=== PATIENT | female | born 1995 | race Caucasian/White ===

== ENCOUNTER 2019-11-23 10:30 | Outpatient (CLI) | payer OTHER ==
--- NOTE | 2019-11-23 12:25 | CT ---
CT OF THE ABDOMEN AND PELVIS WITHOUT CONTRAST: INDICATION: Right-sided flank pain. COMPARISON: Prior exam dated 06/29/2012. FINDINGS: There is mild right hydronephrosis and hydroureter. There is a 4.7 mm stone in the distal right uret er. There is a 3 mm nonobstructing calculus within the mid right kidney. There is a 2.7 mm calculus in the superior pole of the left kidney. There is a 6 mm calculus in the superior pole of the left kidney. Lung bases, liver, pancreas, adrenal glands, spleen, and retroperitoneum appear within normal limits. There is a normal appendix in the right lower quadrant. Bladder, rectum, and perirectal soft tissu es are unremarkable-appearing. IMPRESSION: 1. A 4.7 mm distal right ureteral calculus with mild right hydronephrosis. 2. Worsening bilateral nephrolithiasis. POS: [facility]
== END 2019-11-23 10:31 | disposition home or self-care (01) ==
LOC: BICCT 10:30
PROVIDERS: ATTEND Physician Assistant
DX: R10.9 Unspecified abdominal pain (principal); R30.0 Dysuria; N13.2 Hydronephrosis with renal and ureteral calculous obstruction
CPT/HCPCS: 74176

== ENCOUNTER 2019-12-14 10:42 | Day surgery (SDC) | payer OTHER ==
[2019-12-11 16:07] VITALS: BMI 31.8
[~2019-12-14 10:42] MED LIST: Dexamethasone 20 MG/5 ML VIAL ONE; Lidocaine 1% PF 5 ML VIAL ONE; Ondansetron PF 4 MG/2 ML Vial ONE; PROPOFOL 200 MG/20 ML VIAL ONE
[2019-12-14] MEDS ORDERED: Levofloxacin 500 mg/D5W 100 ml Premix Bag ONE (12:23)
[2019-12-14] MEDS ORDERED: Scopolamine 1.5 mg/72 hour Patch ONE (13:39)
[2019-12-14] MEDS ORDERED: Famotidine/PF 20 mg/2ml Vial ONE (13:39)
[2019-12-14] MEDS ORDERED: Midazolam HCl 2 mg/2 ml Vial ONE (13:40)
[2019-12-14] MEDS ORDERED: Fentanyl 100 MCG/2 ML VIAL ONE ×2 (14:14→15:40)
[2019-12-14] MEDS ORDERED: Promethazine HCl 25 MG/ML VIAL ONE (15:40)
[2019-12-14] MEDS ORDERED: HYDROcodone/Acetaminophen 5/325 mg Tablet ONE (16:38)
[2019-12-14] MEDS ORDERED: B & O ONE (17:35)
--- NOTE | 2019-12-14 19:28 | OP ---
DATE OF PROCEDURE: 12/14/2019 SERVICES: Urology. PREOPERATIVE DIAGNOSIS: Left renal stone. POSTOPERATIVE DIAGNOSIS: Left renal stone. PROCEDURE PERFORMED: Left ureteroscopy, laser lithotripsy, basket extraction of stone, and placement of a 6 x 26 double-J stent with no string attached. INDICATIONS FOR PROCEDURE: Ms. Hebert is a 24-year-old white female, who initially presented to me when she was 17 with a history of renal stones. We had treated her at that time, but she had transferred care to [facility]. She has undergone several stone surgeries since then and then recently came back with another stone on the right side. She passed that stone per CT, demonstrated an additional 6-mm large stone and a 2-mm stone in her left kidney. I discussed ureteroscopy due to the large size of the stone with risks and benefits and she agreed to proceed forward. DESCRIPTION OF PROCEDURE: After identification of armband and verification of consent, the patient was brought back to the operating room, where she underwent general anesthesia with an LMA. She was then placed in dorsal lithotomy position and prepped and draped in usual sterile fashion. After appropriate time-out, a lubricated 22-Austrian rigid cystoscope was introduced per urethra into the bladder. Attention was turned to the left ureteral orifice, which was cannulated with a 0.035 Sensor wire up to the level of renal pelvis. The cystoscope was then removed and a dual-lumen catheter was advanced over the Sensor wire to the level of the mid ureter. An Amplatz Super Stiff wire was then placed through the second lumen up to the level of the renal pelvis and the dual-lumen then removed. A 12 x 14-Austrian short Bard ureteral access sheath was then advanced over the Super Stiff wire up to the level of the proximal ureter. The inner cannula and the Super Stiff wire were then removed leaving the outer sheath and Sensor wire in place as a safety wire. A flexible digital ureteroscope was then passed through the ureteral access sheath into the proximal ureter and into the renal pelvis. A full pyeloscopy was performed, which demonstrated a large stellate type stone in the upper pole along with an additional 2 mm stone. Remainder of the calyces did not demonstrate any nephrolithiasis. Using a 200 micron laser fiber, the stone was fragmented into smaller pieces and then a 1.9-Austrian Asuum basket used to remove all fragments that were over 1 mm in size upon completion. The only stone fragments remaining were submillimeter fragments and possibly a 1 mm fragment. I did not feel these were clinically significant and should pass without a problem. The remainder of the calices remained seemed empty. Pull-back ureteroscopy was employed, which demonstrated multiple areas of dilation as the ureteral access sheath had slid up, which required prolonged stenting for at least 2 weeks to allow for adequate healing. The ureteral access sheath was then removed in its entirety leaving the Sensor wire in place as a safety wire. A 6 x 26 double-J stent was advanced over the Sensor wire and placed fluoroscopically into position. The wire was removed leaving a good curl in the bladder and a partial curl in the kidney. The stent was otherwise in very good position. The bladder was then emptied with the cystoscope sheath removed and B and O suppository placed in the patient's rectum. She was taken out of positioning, awakened, taken to PACU for recovery in stable condition. COMPLICATIONS: None. ESTIMATED BLOOD LOSS: Minimal. RETAINED TUBES AND DRAINS: 6 x 26 double-J stent on the left. SPECIMENS: Stone for stone analysis. DISPOSITION: The patient will be discharged home and follow up with me in approximately 2 weeks for cystoscopy and stent pull. Job ID: [id number]
[2019-12-26 21:07] LABS: CA Oxalate Dihydrate 30 % (.); CA Oxalate Monohydrate 70 % (.); Color Brown (.); Stone Weight 37 mg (.)
== END 2019-12-14 17:25 | disposition home or self-care (01) ==
LOC: SDC 10:42
PROVIDERS: ATTEND Urology
PROC: 0T778DZ Dilation of Left Ureter with Intraluminal Device, Via Natural or Artificial Opening Endoscopic (ICD-10-PCS; principal; 2019-12-14)
PROC: 0TC48ZZ Extirpation of Matter from Left Kidney Pelvis, Via Natural or Artificial Opening Endoscopic (ICD-10-PCS; principal; 2019-12-14)
DX: N20.0 Calculus of kidney (principal); Z79.899 Other long term (current) drug therapy; Z91.048 Other nonmedicinal substance allergy status
CPT/HCPCS: 76000; 82365; 88300; J1100; J1956; J2250; J2405; J2550; J2704; J3010; S0028

== ENCOUNTER 2020-03-07 14:46 | Outpatient (CLI) | payer BC ==
--- NOTE | 2020-03-07 15:18 | ULT ---
US Renal Bilateral STANDARD History: Calcification removal history Comparison: CT Stone protocol November 23, 2019 Findings: Real-time grayscale and color evaluation of the kidneys and urinary bladder was performed. Right kidney measures 11.9 x 4.8 x 5.7 cm and the left kidney measures 11.1 x 5.4 x 5.1 cm. No renal mass, hydronephrosis or abnormal calcifications. Urinary bladder is normal. Impression: Normal renal ultrasound.
== END 2020-03-07 14:47 | disposition home or self-care (01) ==
LOC: BICULT 14:46
PROVIDERS: ATTEND Urology
DX: N20.0 Calculus of kidney (principal)
CPT/HCPCS: 76770